=== PATIENT | female | born 1980 | race African-American/Black ===

== ENCOUNTER 2019-11-12 16:35 | Emergency (ER) | payer MEDICAID ==
[~2019-11-12] VITALS: Ht 165.1 cm; Wt 59.0 kg
[2019-11-12 16:58] VITALS: BP 132/87
== END 2019-11-12 17:42 | disposition home or self-care (01) ==
LOC: ER 16:35
DX: S91.111A Laceration without foreign body of right great toe without damage to nail, initial encounter (principal); X58.XXXA Exposure to other specified factors, initial encounter; Y93.89 Activity, other specified; Y92.89 Other specified places as the place of occurrence of the external cause; Y99.8 Other external cause status
CPT/HCPCS: 12002

== ENCOUNTER 2019-12-08 12:33 | Emergency (ER) | payer MEDICAID ==
[~2019-12-08] VITALS: Ht 165.1 cm; Wt 63.5 kg
[2019-12-08 14:16] VITALS: BP 103/80
== END 2019-12-08 14:40 | disposition home or self-care (01) ==
LOC: ER 12:33
DX: S91.111D Laceration without foreign body of right great toe without damage to nail, subsequent encounter (principal); X58.XXXD Exposure to other specified factors, subsequent encounter; F17.210 Nicotine dependence, cigarettes, uncomplicated

== ENCOUNTER 2024-01-17 22:50 | Emergency (ER) | payer SELFPAY ==
[~2024-01-17] VITALS: Ht 162.6 cm; Wt 55.7 kg
[2024-01-17 23:00] VITALS: BP 142/94; PULSE 112; RESP 16; O2SAT 99
[2024-01-17] MEDS: ALPRAZolam 0.25 MG TAB PO ONE (23:37)
[2024-01-17] MEDS: HYDROcodone-ACET 10/325MG TAB PO ONE (23:37)
[2024-01-17] MEDS: ONDANSETRON ODT 4 MG TAB PO ONE (23:37)
[2024-01-17 23:40] LABS: Eosinophils # (auto) 0.2 10 ^3/uL (0-0.8); Lymphocytes # (auto) 1.6 10 ^3/uL (0.4-5.4); Mean Corpuscular Hemoglobin 23.7 pg (28.0-32.0); Monocytes # (auto) 0.8 10 ^3/uL (0-1.3); Neutrophils # (auto) 7.1 10 ^3/uL (1.6-8.6); White Blood Cell 9.8 10^3/uL (4.4-10.8)
[2024-01-17 23:41] LABS: Basophils # (auto) 0 10 ^3/uL (0-0.2); Basophils % (auto) 0.4 % (0.0-2.0); Eosinophils % (auto) 2.2 % (0.0-7.0); Hematocrit 37.5 % (36.0-46.0); Hemoglobin 11.8 g/dL (12.2-16.2); Lymphocytes % (auto) 16.8 % (10.0-50.0); Mean Corpuscular Hgb Conc. 31.4 g/dL (32.0-36.0); Mean Corpuscular Volume 75.6 fL (80.0-100.0); Monocytes % (auto) 7.7 % (0.0-12.0); Neutrophils % (auto) 72.9 % (37.0-80.0); Platelet Count (auto) 459 10^3/uL (140-450); Red Blood Cells 4.96 10^6/uL (4.0-5.20); Red Cell Distribution Width 23.2 % (11.8-14.3)
[2024-01-17 23:50] LABS: Chloride 113 mmol/L (98-107); Potassium 3.3 mmol/L (3.5-5.1); Sodium 142 mmol/L (136-145)
[2024-01-17 23:51] LABS: Anion Gap 11 (5-15); Carbon Dioxide 18 mmol/L (20-31)
[2024-01-17 23:52] LABS: Calcium 9.5 mg/dL (8.7-10.4)
[2024-01-17 23:56] LABS: BUN/Creatinine Ratio 7.2 (10.0-20.0); Blood Urea Nitrogen 6 mg/dL (9-23); Glucose 117 mg/dL (74-106)
[2024-01-17 23:57] LABS: Blood Alcohol 209.1 mg/dL (<10)
[2024-01-18] MEDS: HYDROcodone-ACET 10/325MG TAB PO ONE (04:46)
== END 2024-01-18 10:00 | disposition left against medical advice (07) ==
LOC: ER 22:50 → EEVIPCON 22:50 → ER 01-18 10:00
DX: S02.2XXA Fracture of nasal bones, initial encounter for closed fracture (principal); S22.41XA Multiple fractures of ribs, right side, initial encounter for closed fracture; S40.022A Contusion of left upper arm, initial encounter; F17.210 Nicotine dependence, cigarettes, uncomplicated; Y08.89XA Assault by other specified means, initial encounter; Y93.89 Activity, other specified; Y92.89 Other specified places as the place of occurrence of the external cause; Y99.8 Other external cause status
CPT/HCPCS: 36415; 71111; 73090; 80048; 80320; 85025; 99284; Q0162

== ENCOUNTER 2024-08-31 08:06 | Emergency (ER) | payer MEDICAID ==
[~2024-08-31] VITALS: Ht 165.1 cm; Wt 52.3 kg
[2024-08-31 08:51] VITALS: BP 125/79; PULSE 115; RESP 20; TEMP 98.8; O2SAT 98
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
[2024-08-31] MEDS ORDERED: ACET-1881 PO (10:18)
[2024-08-31] MEDS ORDERED: CEPH500C PO (10:18)
[2024-08-31] MEDS: TETANUS-DIPTH-ACEL PERTUSSIS 0.5ML SYR Tdap IM ONE (10:29)
[2024-08-31] MEDS: BACITRACIN TOP OINT 1 UD PKG TOP ONE (10:39)
== END 2024-08-31 10:20 | disposition home or self-care (01) ==
LOC: ER 08:06
DX: S61.411A Laceration without foreign body of right hand, initial encounter (principal); F17.210 Nicotine dependence, cigarettes, uncomplicated; X58.XXXA Exposure to other specified factors, initial encounter; Y93.89 Activity, other specified; Y92.89 Other specified places as the place of occurrence of the external cause; Y99.8 Other external cause status
CPT/HCPCS: 12002; 90471; 90715